=== PATIENT | female | born 1995 | race Caucasian/White ===

== ENCOUNTER → 2017-05-07 | Outpatient (CLI) | payer OTHER ==
[~2017-05-07] MED LIST: AURALGAN OTIC S10 M1 AD; BENADRYL PO; DERMACORT1 GM EXT; IMPLANON; METRONIDAZOLE PO; NO MEDICATIONS
--- NOTE | ~2017-05-07 | US77 ---
[facility]. [facility] A Service of [facility] RADIOLOGY TEXT RESULTS PATIENT: AZUCENA DOTY LOCATION: [facility] : [birth year] UNIT #: [id number] AGE: [address]: CATHERINE GARCIA APR SEX: F ORDER DR: [id number] [place] [id number] P MR#: [id number] Acc #: [id number] NAME: AZUCENA DOTY : 1995 SEX: F STUDY DATE/TIME: 05/07/2017 13:05 UNIT: [facility] ROOM: STUDY DESCRIPTION: US Kidney Bilateral Complete Attending Physician: Catherine Garcia Aprn Referring Physician: Catherine Garcia Aprn Ordering Physician: Catherine Garcia Aprn Primary Care Physician: Primary Care Physician No MEDICAL IMAGING REPORT This report is preliminary unless electronic signature is present. EXAM Renal ultrasound HISTORY Mid back and flank pain for 1 month TECHNIQUE Brennan-scale and color Doppler sonographic images were obtained through the kidneys and bladder. FINDINGS Both kidneys are normal in appearance. No solid or cystic renal masses are seen and there is no hydronephrosis. Urinary bladder is normal. IMPRESSION Normal renal ultrasound. Dictated by... Laura Goncalves M.D. THIS IS AN ELECTRONICALLY VERIFIED REPORT Laura Goncalves M.D. at 05/08/2017 5:01 PM AFF/to TD: 05/07/2017 22:56 JOB #: [id number] MEDICAL IMAGING REPORT Page 1 of 1
== END | disposition home or self-care (01) ==
LOC: SGUS 07:21
DX: M54.9 Dorsalgia, unspecified (principal)
CPT/HCPCS: 76775